=== PATIENT | female | born 1940 | race Native Hawaiian/Other Pacific Islander ===

== ENCOUNTER 2016-11-25 10:23 | Outpatient (CLI) | payer OTHER ==
--- NOTE | 2016-11-25 12:05 | DIAGNOSTIC IMAGING REPORT ---
PROCEDURE: CT THORAX ABD PELVIS W/CONT INDICATION: LUNG CA, follow-up TECHNIQUE: 100 ml of Isovue 300 injected intravenously and axial images were obtained of the entire thorax, abdomen, and pelvis with sagittal and coronal reformations. COMPARISON: CT chest/abdomen/pelvis 09/04/2016 FINDINGS: THORAX: Decreasing volume of the left apical opacity with volume loss consistent with scarring. Stable 8 mm posterior right upper lobe peripheral ground-glass nodule. Stable several peripheral right upper lobe nodules measuring 2-3 mm. New small right middle lobe patchy density. Stable 4 mm upper lobe nodule (image 24). No adenopathy or effusion. Stable multinodular thyroid gland. Mild atherosclerosis of the aorta and coronaries. Heart size is normal. Stable T1, T2 and T6 sclerotic lesions. ABDOMEN: The liver, gallbladder, pancreas, adrenal glands and right kidney are normal. Two stable small hypoenhancing splenic lesions, largest 5 mm. Small left renal cyst. Moderate atherosclerosis of the aorta. There is no retroperitoneal adenopathy. Stable L2 and L3 punctate sclerotic lesions. PELVIS: Normal appendix. Nonspecific bowel gas pattern. Hysterectomy. Distended bladder. No pelvic mass, inflammatory changes or free fluid. Stable sclerotic lesions throughout the pelvis and right femur. IMPRESSION: 1. Decreasing left apical opacity and volume loss consistent with scarring. 2. New small right middle lobe patchy density 3. Stable bilateral multiple peripheral lung nodules 4. Stable scattered osseous sclerotic metastases 5. Hysterectomy 6. Stable multinodular thyroid gland All CT scans at this facility use dose modulation, iterative reconstruction, and/or weight-based dosing when appropriate to reduce radiation dose to as low as reasonably achievable.
== END 2016-11-25 23:00 ==
LOC: CT SRH 10:23
DX: C34.90 Malignant neoplasm of unspecified part of unspecified bronchus or lung (principal); C79.51 Secondary malignant neoplasm of bone; J98.4 Other disorders of lung

== ENCOUNTER 2016-12-29 10:18 | Outpatient (CLI) | payer OTHER ==
--- NOTE | 2016-12-29 11:13 | DIAGNOSTIC IMAGING REPORT ---
PROCEDURE: DEXA BONE DENSITY STUDY CLINICAL INDICATION: SCREENING FOR OSTEOPOROSIS COMPARISON: DEXA 03/11/2011 FINDINGS: LUMBAR SPINE: Bone mineral density 0.800 g/cm2, T score -2.2 osteopenia which represents a 13% decrease from the previous study LEFT HIP: Bone mineral density 0.844 g/cm2, T score -0.8 normal which represents an 8.3% decrease from the previous study LEFT FEMORAL NECK: Bone mineral density 0.735 g/cm2, T score -1.0 normal which represents a 7.1% decrease from the previous study FRACTURE RISK CALCULATION ( when applicable): 10-year fracture risk of a major osteoporotic fracture 4.9 % and of a hip fracture 1 % (T score greater or equal to -1.0 to: NORMAL) (T score from -1.1 to -2.4: OSTEOPENIA) (T score ess than or equal to -2.5: OSTEOPOROSIS) IMPRESSION: 1. Osteopenia lumbar spine with a 10-year major fracture risk of 4.9% and a hip fracture risk of 1% 2. Decreasing bone mineral density in the spine hip and femoral neck.
== END 2016-12-29 23:00 ==
LOC: XR SRH 10:18
DX: M25.562 Pain in left knee (principal); G89.29 Other chronic pain; M85.88 Other specified disorders of bone density and structure, other site

== ENCOUNTER → 2017-03-17 | Outpatient (CLI) | payer OTHER ==
--- NOTE | 2017-03-17 13:23 | DIAGNOSTIC IMAGING REPORT ---
PROCEDURE: CT THORAX ABD PELVIS W/CONT INDICATION: LUNG CA TECHNIQUE: 125 ml of Isovue 300 injected intravenously and axial images were obtained of the entire thorax, abdomen, and pelvis with sagittal and coronal reformations. COMPARISON: Multiple prior studies with the most recent CT chest, abdomen, pelvis from 11/25/2016, PET CT from 06/27/2014. FINDINGS: THORAX: The anterior aspect of the left upper lobe now demonstrates more confluent, enhancing, mass-like opacity, progressed compared to the prior study but is similar compared to 09/04/2016. There has been very subtle enlargement of small prevascular lymph nodes, each measuring about 5 mm in short axis compared to the August study, but fairly stable compared to the November study. There has been overall further loss of volume involving the anterior upper left hemithorax central left upper lobe parenchymal scarring is fairly stable. Tiny subpleural lateral lingular nodule is stable. Anterolateral segment left lower lobe ground-glass nodules are also stable. Stable tiny ground-glass subpleural right lateral upper lobe nodules and 8 mm perifissural right upper lobe nodule are stable. Minimal stable right middle lobe tree in bud nodular density. Stable multinodular thyroid. Moderate aortic atherosclerosis. Normal sized heart. No new pleural effusions. Stable tiny sclerotic foci in T1, T2, and T6, and left first rib No new adenopathy or masses elsewhere in the chest. ABDOMEN: A single 6 mm splenic hypodensity is seen. Small left posterior lower pole renal cyst. Moderate amount of retained colonic stool. Moderate mixed calcified and noncalcified abdominal aortic atherosclerosis. Normal liver, gallbladder, adrenal glands, right kidney, retroperitoneum without adenopathy, stomach, and bowel loops. PELVIS: Distended urinary bladder with irregular wall thickening, and mild mucosal enhancement. Normal appendix. Surgically absent uterus. Normal pelvic bowel loops with increased amount of stool. Moderate atherosclerosis. No adenopathy, free fluid, or new mass. Sclerotic left sacral ala, L3, L4, right ilium, and bilateral acetabular, left ischial, and the large right femoral lesions. IMPRESSION: 1. Increased, mass-like enhancing consolidation involving the anterior left upper lobe. In the setting of overall decreasing left hemithorax volume, this may be atelectasis, or post obstructive pneumonia, however restaging PET CT may be useful. 2. Stable, tiny, likely clinically insignificant ground-glass pulmonary nodules elsewhere in each lung. 3. Multiple stable sclerotic osseous foci without change in size or number. 4. Distended urinary bladder with irregular wall thickening and enhancement. Clinical correlation for symptoms of cystitis or bladder outlet obstruction recommended. All CT scans at this facility use dose modulation, iterative reconstruction, and/or weight-based dosing when appropriate to reduce radiation dose to as low as reasonably achievable.
== END ==
LOC: CT SRH 10:30
DX: C34.90 Malignant neoplasm of unspecified part of unspecified bronchus or lung (principal); N32.89 Other specified disorders of bladder